=== PATIENT | female | born 1945 | race Caucasian/White ===

== ENCOUNTER 2018-02-28 17:01 | Emergency (ER) | payer OTHER ==
[~2018-02-28] VITALS: Ht 157.5 cm; Wt 60.3 kg
[2018-02-28] MEDS ORDERED: ISOSORBIDE DINI30 MG (18:26)
[2018-02-28] MEDS ORDERED: COZAAR100 MG (18:26)
[2018-02-28] MEDS ORDERED: LIPITOR20 MG (18:26)
[2018-02-28] MEDS ORDERED: PLAVIX75 MG (18:26)
[2018-02-28] MEDS ORDERED: CARAFATE1 GM/10 ML (18:27)
[2018-02-28] MEDS ORDERED: PEPCID20 MG (18:27)
[2018-02-28] MEDS ORDERED: LASIX20 MG (18:27)
[2018-02-28] MEDS ORDERED: FERRETTS325 MG (18:27)
[2018-02-28] MEDS ORDERED: FOLIC ACID1 MG (18:28)
[2018-02-28] MEDS ORDERED: METOPROLOL SUCC50 MG (18:29)
[2018-02-28] MEDS ORDERED: TESSALON PERLE100 M1 PO (19:38)
[2018-02-28] MEDS ORDERED: PROMETH-CODEIN 65 ML PO (19:38)
[2018-02-28] MEDS ORDERED: ZITHROMAX500 MG PO (19:38)
== END 2018-02-28 20:27 | disposition home or self-care (01) ==
LOC: ER 17:01
DX: R05 Cough (principal)